=== PATIENT | female | born 1985 | race Caucasian/White ===

== ENCOUNTER 2019-03-25 10:45 | Emergency (ER) | payer MEDICAID ==
[~2019-03-25] VITALS: Wt 75.0 kg
[~2019-03-25 10:45] MED LIST: CYCL10TA7 PO; NAPR-985 PO
[2019-03-25 11:05] VITALS: BP 114/77; PULSE 77; RESP 20
[2019-03-25] MEDS ORDERED: DEXAMETHASONE 10 MG/ML 1 ML INJ IM ONE (11:30)
[2019-03-25] MEDS ORDERED: KETOROLAC 30 MG INJ IM STA (11:30)
== END 2019-03-25 12:35 | disposition home or self-care (01) ==
LOC: FTE 10:45
DX: M54.41 Lumbago with sciatica, right side (principal)
CPT/HCPCS: 81003; 81025; 96372; J1100; J1885; Z7502